=== PATIENT | female | born 1940 | race Caucasian/White ===

== ENCOUNTER → 2022-07-22 | Outpatient (CLI) | payer MEDICARE, OTHER | LOC: ORTHO 10:30 | PROVIDERS: ATTEND Orthopaedic Surgery | DX: G56.01 Carpal tunnel syndrome, right upper limb (principal); I10 Essential (primary) hypertension; E03.9 Hypothyroidism, unspecified | CPT/HCPCS: 20526 ==

== ENCOUNTER → 2023-05-11 | Outpatient (CLI) | payer MEDICARE, OTHER | LOC: ORTHO 13:17 | PROVIDERS: ATTEND Orthopaedic Surgery | DX: G56.02 Carpal tunnel syndrome, left upper limb (principal) | CPT/HCPCS: 20526 ==